=== PATIENT | female | born 1995 | race Asian ===

== ENCOUNTER 2017-12-16 18:56 | Outpatient (CLI) | payer OTHER ==
--- NOTE | 2017-12-17 08:38 | Ultrasound Report ---
Procedure Date: 12/16/2017 Accession Number: [id number] / [id number] Procedure: US - Pelvic Complete CPT Code: FULL RESULT: EXAM: PELVIC ULTRASOUND EXAM DATE: 12/16/2017 07:56 PM. CLINICAL HISTORY: Pelvic and perineal pain. COMPARISON: None. TECHNIQUE: Realtime transabdominal pelvic scan performed to identify the uterus and adnexa and as an overview of other pelvic structures, with static image documentation. FINDINGS: Study is limited by exclusively transabdominal technique. Uterus: 6.8 x 4.3 x 2.8 cm, volume 43 cc. Anteverted position. Normal overall size and echotexture. Masses: None. Endometrium: 7 mm. Normal. Cervix: Unremarkable. Right Ovary: 4.9 x 2.8 x 3.1 cm, volume 22 cc. Normal echotexture and blood flow by spectral Doppler. Left Ovary: 4.6 x 2.8 x 1.9 cm, volume 13 cc. Normal echotexture and blood flow by spectral Doppler. Free Fluid: None. Other: None. IMPRESSION: Normal pelvic ultrasound. RADIA
== END 2017-12-16 18:57 | disposition home or self-care (01) ==
LOC: DI 18:56
PROVIDERS: ATTEND Family Medicine
DX: R10.2 Pelvic and perineal pain (principal)
CPT/HCPCS: 76856

== ENCOUNTER 2017-12-22 23:26 | Emergency (ER) | payer OTHER ==
--- NOTE | 2017-12-22 23:53 | ED Physician Documentation ---
PD HPI ABD PAIN - Stated complaint Stated Complaint: ABDOMINAL PAIN - Chief complaint Chief Complaint: Abd Pain - History obtained from History obtained from: Patient, Family - History of Present Illness Timing - onset: Today Timing - details: Abrupt onset, Intermittant Quality: Cramping, Sharp Location: RUQ Worsened by: Eating, Breathing, Palpation Associated symptoms: Nausea. No: Fever, Vomiting Similar symptoms before: No diagnosis Recently seen: Not recently seen - Additional information Additional information: Patient is a 21 year old female who is presenting to the emergency department for abdominal pain. Patient had left upper quadrant pain 2 days ago and saw her doctor who said it was constipation. patient states that tonight she had right upper quadrant pain that was sharp in nature. Patient took some ibuprofen with little relief. Review of Systems Ten Systems: 10 systems reviewed and negative Constitutional: denies: Fever, Chills Cardiac: denies: Chest pain / pressure GI: reports: Abdominal Pain. denies: Nausea, Vomiting, Constipation, Diarrhea : denies: Dysuria, Frequency Musculoskeletal: denies: Back pain Neurologic: denies: Generalized weakness, Focal weakness, Numbness Immunocompromised: denies: Immunocompromised PD PAST MEDICAL HISTORY - Past Medical History Past Medical History: No - Past Surgical History HEENT: Myringotomy (tubes) - Present Medications Home Medications: Ambulatory Orders Medication Instructions Recorded Confirmed Ursodiol 300 mg PO TID #30 capsule 12/23/17 - Allergies Allergies/Adverse Reactions: Allergies Allergy/AdvReac Type Severity Reaction Status Date / Time No Known Drug Allergies Allergy Verified 12/22/17 23:38 - Social History Does the pt smoke?: No Smoking Status: Never smoker Does the pt drink ETOH?: No Does the pt have substance abuse?: No - Immunizations Immunizations are current?: Yes PD ED PE NORMAL - Vitals Vital signs reviewed: Yes - General General: Alert and oriented X 3, No acute distress - HEENT HEENT: Atraumatic, PERRL - Cardiac Cardiac: RRR - Respiratory Respiratory: No respiratory distress - Abdomen Abdomen: Soft - Derm Derm: Normal color, Warm and dry - Extremities Extremities: No deformity - Neuro Neuro: Alert and oriented X 3, No motor deficit, Normal speech Eye Opening: Spontaneous Motor: Obeys Commands Verbal: Oriented GCS Score: 15 - Psych Psych: Normal mood PD ED PE EXPANDED - Abdomen Abdomen: Tender to palpation, RUQ. No: Rebound, Guarding Results - Vitals Vitals: Vital Signs - 24 hr 12/22/17 12/23/17 23:32 00:50 Temperature 37 C Heart Rate 105 H 97 Respiratory 18 18 Rate Blood Pressure 155/93 H 131/99 H O2 Saturation 98 99 Oxygen O2 Source Room air - Labs Labs: Laboratory Tests 12/22/17 12/23/17 12/23/17 23:43 00:00 00:00 WBC 12.9 H RBC 4.31 Hgb 12.6 Hct 37.2 MCV 86.4 MCH 29.3 MCHC 33.9 RDW 12.6 Plt Count 435 MPV 7.1 L Neut # (Auto) 10.1 H Lymph # (Auto) 1.9 [place] # (Auto) 0.7 Eos # (Auto) 0.2 Baso # (Auto) 0.1 Absolute Nucleated RBC 0.00 Nucleated RBC % 0.0 Sodium 137 Potassium 3.9 Chloride 102 Carbon Dioxide 27 Anion Gap 8.0 BUN 15 Creatinine 0.8 Estimated GFR (MDRD) 92 Glucose 120 H Calcium 9.4 Total Bilirubin 0.5 AST 21 ALT 29 Alkaline Phosphatase 93 Total Protein 9.1 H Albumin 3.9 Globulin 5.2 H Albumin/Globulin Ratio 0.8 L Lipase 34 Urine Color YELLOW Urine Clarity CLEAR Urine pH 6.0 Ur Specific [place] 1.025 Urine Protein NEGATIVE Urine Glucose (UA) NEGATIVE Urine Ketones NEGATIVE Urine Occult Blood NEGATIVE Urine Nitrite NEGATIVE Urine Bilirubin NEGATIVE Urine Urobilinogen 0.2 (NORMAL) Ur Leukocyte Esterase NEGATIVE Ur Microscopic Review NOT INDICATED Urine Culture Comments NOT INDICATED Urine HCG, Qual NEGATIVE - Rads (name of study) abd ultrasound Radiology: Final report received (possible gallstone, no sign of infection), See rad report PD MEDICAL DECISION MAKING - ED course Complexity details: reviewed old records, reviewed results, re-evaluated patient , considered differential, d/w patient, d/w family ED course: Patient was seen and examined at bedside. labs were drawn and urine was collected. abd ultrasound was ordered. when patient returned from imaging results were reviewed. Patient was found to have a cholelithiasis without evidence of acute cholecystitis. Patient was educated on the disease. patient required no further work up and was stable for discharge with outpatient follow up. - Sepsis Event Vital Signs: Vital Signs - 24 hr 12/22/17 12/23/17 23:32 00:50 Temperature 37 C Heart Rate 105 H 97 Respiratory 18 18 Rate Blood Pressure 155/93 H 131/99 H O2 Saturation 98 99 Oxygen O2 Source Room air Departure - Departure Disposition: 01 Home, Self Care Clinical Impression: Gallstone Condition: Good Instructions: ED Gallstone W Biliary Colic Follow-Up: Victor Hugo Pratt MD [Provider Admit Priv/Credential] - Prescriptions: Ursodiol 300 mg PO TID #30 capsule Comments: Your symptoms today are being caused by a gallstone. You are being prescribed a medication to help dissolve it but the most important thing is to change your diet. You will need to cut out any fried foods, fatty foods or fast foods. you should follow up with dr. pabon for further evaluation and care. You should return to the emergency department for fevers, chills, vomiting, new worsening or uncontrollable symptoms.
[2017-12-23 00:11] LABS: BILIRUBIN,URINE NEGATIVE (NEGATIVE); GLUCOSE, URINE (UA) NEGATIVE (NEGATIVE); KETONES,URINE (UA) NEGATIVE (NEGATIVE); LEUKOCYTE ESTERASE, URINE NEGATIVE (NEGATIVE); NITRITE,URINE NEGATIVE (NEGATIVE); OCCULT BLOOD,URINE NEGATIVE (NEGATIVE); PROTEIN,URINE NEGATIVE (NEGATIVE); UROBILINOGEN,URINE 0.2 (NORMAL) E.U./dL (NORMAL)
[2017-12-23 00:17] LABS: CLARITY,URINE CLEAR (CLEAR); HCG UR QUAL NEGATIVE
[2017-12-23 00:19] LABS: BASOPHILS # (AUTO) 0.1 10^3/uL (0.0-0.1); BASOPHILS % (AUTO) 0.5 %; EOSINOPHILS # (AUTO) 0.2 10^3/uL (0.0-0.7); EOSINOPHILS % (AUTO) 1.2 %; HGB - HEMOGLOBIN 12.6 g/dL (12.0-16.0); LYMPHOCYTES # (AUTO) 1.9 10^3/uL (1.5-3.5); MEAN CORPUSCULAR HEMOGLOBIN 29.3 pg (27.0-31.0); MEAN CORPUSCULAR HGB CONC 33.9 g/dL (32.0-36.0); MEAN CORPUSCULAR VOLUME 86.4 fL (81.0-99.0); MEAN PLATELET VOLUME 7.1 fL (7.9-10.8); MONOCYTES # (AUTO) 0.7 10^3/uL (0.0-1.0); MONOCYTES % (AUTO) 5.1 %; NEUTROPHILS # (AUTO) 10.1 10^3/uL (1.5-6.6); NEUTROPHILS % (AUTO) 78.2 %; PLT - PLATELET COUNT 435 10^3/uL (130-450); RED BLOOD COUNT 4.31 10^6/uL (4.20-5.40); RED CELL DISTRIBUTION WIDTH 12.6 % (12.0-15.0); WHITE BLOOD COUNT 12.9 x10^3/uL (4.8-10.8)
[2017-12-23 00:20] LABS: ALBUMIN 3.9 g/dL (3.2-5.5); ALBUMIN/GLOBULIN RATIO 0.8 (1.0-2.2); BILIRUBIN,TOTAL 0.5 mg/dL (0.2-1.0); CALCIUM 9.4 mg/dL (8.5-10.3); CREATININE 0.8 mg/dL (0.4-1.0); TOTAL PROTEIN 9.1 g/dL (6.7-8.2)
[2017-12-23 00:51] VITALS: BP 131/99
--- NOTE | 2017-12-23 01:31 | Ultrasound Report ---
Procedure Date: 12/23/2017 Accession Number: [id number] / [id number] Procedure: US - Abdomen Limited CPT Code: FULL RESULT: EXAM: ABDOMEN ULTRASOUND LIMITED, RUQ EXAM DATE: 12/23/2017 12:35 AM. CLINICAL HISTORY: Ruq pain. COMPARISON: None. TECHNIQUE: Real-time scanning was performed with static images obtained. FINDINGS: Liver: Submitted images of liver demonstrate no focal lesions. Main portal vein flow: Hepatopetal. Gallbladder: The gallbladder is contracted. Questionable shadowing stone within the gallbladder fundus region. No evidence of gallbladder wall thickening. There is a positive sonographic Live sign. Biliary System: CBD measures 4 mm. No intrahepatic or extrahepatic ductal dilatation. Other: The visualized pancreas and right kidney are unremarkable. IMPRESSION: 1. Possible cholelithiasis. There is no evidence of gallbladder wall thickening for sonographic diagnosis of cholecystitis. 2. There is no intra-or extrahepatic bile duct dilatation. RADIA
== END 2017-12-23 01:27 | disposition home or self-care (01) ==
LOC: ED 23:26
DX: K80.20 Calculus of gallbladder without cholecystitis without obstruction (principal)
CPT/HCPCS: 36415; 76705; 80053; 81001; 81003; 81025; 83690; 85025; 87086; 99283

== ENCOUNTER 2020-07-17 03:07 | Emergency (ER) | payer OTHER ==
[2020-07-17 03:35] LABS: GLUCOSE, URINE (UA) NEGATIVE (NEGATIVE); KETONES,URINE (UA) NEGATIVE (NEGATIVE); LEUKOCYTE ESTERASE, URINE NEGATIVE (NEGATIVE); NITRITE,URINE NEGATIVE (NEGATIVE); OCCULT BLOOD,URINE SMALL (NEGATIVE); PROTEIN,URINE 100 mg/dL (NEGATIVE); UROBILINOGEN,URINE 1 (NORMAL) E.U./dL (NORMAL)
[2020-07-17 03:46] LABS: BACTERIA,URINE Few /HPF (None Seen); BILIRUBIN,URINE NEGATIVE (NEGATIVE); CLARITY,URINE CLEAR (CLEAR); HCG UR QUAL NEGATIVE; ICTOTEST,URINE NEGATIVE; SQUAMOUS EPITHELIAL CELL,UR FEW Squamous (<= Few); WBC,URINE 0-3 /HPF (0-5)
[2020-07-17 03:47] LABS: AMORPHOUS SEDIMENT,UR Rare /LPF; CASTS, URINE 3-5 Hyaline Casts /LPF; MUCUS,URINE Marked Strands
[2020-07-17 03:52] LABS: BASOPHILS # (AUTO) 0.1 10^3/uL (0.0-0.1); BASOPHILS % (AUTO) 0.6 %; EOSINOPHILS # (AUTO) 0.1 10^3/uL (0.0-0.7); HCT - HEMATOCRIT 46.1 % (37.0-47.0); HGB - HEMOGLOBIN 14.7 g/dL (12.0-16.0); LYMPHOCYTES # (AUTO) 2.8 10^3/uL (1.5-3.5); LYMPHOCYTES % (AUTO) 27.4 %; MEAN CORPUSCULAR HEMOGLOBIN 28.4 pg (27.0-31.0); MEAN CORPUSCULAR HGB CONC 31.9 g/dL (32.0-36.0); MEAN CORPUSCULAR VOLUME 89.2 fL (81.0-99.0); MEAN PLATELET VOLUME 9.1 fL (7.9-10.8); MONOCYTES # (AUTO) 0.6 10^3/uL (0.0-1.0); MONOCYTES % (AUTO) 5.8 %; NEUTROPHILS # (AUTO) 6.8 10^3/uL (1.5-6.6); NEUTROPHILS % (AUTO) 64.9 %; PLT - PLATELET COUNT 298 10^3/uL (130-450); RED BLOOD COUNT 5.17 10^6/uL (4.20-5.40); RED CELL DISTRIBUTION WIDTH 12.4 % (12.0-15.0); WHITE BLOOD COUNT 10.4 x10^3/uL (4.8-10.8)
[2020-07-17 04:06] LABS: BILIRUBIN,TOTAL 0.6 mg/dL (0.2-1.0); CALCIUM 9.3 mg/dL (8.5-10.3); POTASSIUM 3.6 mmol/L (3.5-5.0); TOTAL PROTEIN 8.1 g/dL (6.7-8.2)
--- NOTE | 2020-07-17 04:42 | ED Physician Documentation ---
History of Present Illness - Stated complaint Stated Complaint: STOMACH ACHE, NAUSEA - Chief complaint Chief Complaint: Abd Pain - History obtained from History obtained from: Patient - Additonal information Additional information: 24-year-old woman with history of gallstones, medically managed alone, no other medical history presents with near syncopal episode on the toilet around 2:30 AM. Patient states that she had 1 glass of wine last night and went to bed feeling normal, woke up with intermittent diffuse mild upper abdominal pain that is nonradiating, went to the toilet and as she was straining to have a BM she had a wave of nausea, lightheadedness and diaphoresis. She continued to feel weak and experienced ongoing intermittent abdominal pain and so her mother said that she should come to the emergency room. Patient is on oral contraceptive and had her period last week. Denies vomiting, diarrhea, urinary symptoms, fever, back pain. Pain has now resolved in the ED and she no longer feels dizzy. Review of Systems Ten Systems: 10 systems reviewed and negative Constitutional: denies: Fever, Chills, Myalgias Cardiac: denies: Chest pain / pressure Respiratory: denies: Dyspnea GI: reports: Abdominal Pain, Nausea. denies: Vomiting, Diarrhea : denies: Dysuria PD PAST MEDICAL HISTORY - Past Surgical History Past Surgical History: Yes HEENT: Myringotomy (tubes) - Present Medications Home Medications: Ambulatory Orders Medication Instructions Recorded Confirmed Drospir/Eth Estra/Levomefol Ca 1 each PO DAILY 07/17/20 07/17/20 [[id number]] - Allergies Allergies/Adverse Reactions: Allergies Allergy/AdvReac Type Severity Reaction Status Date / Time No Known Drug Allergies Allergy Verified 07/17/20 03:15 - Social History Does the pt smoke?: No Smoking Status: Never smoker Does the pt drink ETOH?: No Does the pt have substance abuse?: No - Immunizations Immunizations are current?: Yes PD ED PE NORMAL - Vitals Vital signs reviewed: Yes - General General: Alert and oriented X 3, No acute distress, Well developed/nourished - HEENT HEENT: Atraumatic, PERRL, EOMI, Moist mucous membranes - Neck Neck: Supple, no meningeal sign - Cardiac Cardiac: RRR - Respiratory Respiratory: No respiratory distress, Clear bilaterally - Abdomen Abdomen: Soft, Non tender, Non distended - Back Back: No CVA TTP - Derm Derm: Normal color, Warm and dry - Extremities Extremities: No deformity, No edema - Neuro Neuro: Alert and oriented X 3, forging engineer 2-12 intact, No motor deficit, No sensory deficit, Normal speech - Psych Psych: Normal mood, Normal affect Results - Vitals Vitals: Vital Signs - 24 hr 07/17/20 07/17/20 03:10 04:24 Temperature 36.2 C L Heart Rate 58 L Heart Rate [ 77 Sitting] Heart Rate [ 66 Standing] Heart Rate [ 67 Supine] Respiratory 18 Rate Blood Pressure 106/50 L Blood Pressure 108/79 [Sitting] Blood Pressure 108/78 [Standing] Blood Pressure 108/69 [Supine] O2 Saturation 99 Oxygen O2 Source Room air - Labs Labs: Laboratory Tests 07/17/20 07/17/20 07/17/20 03:21 03:21 03:45 WBC 10.4 RBC 5.17 Hgb 14.7 Hct 46.1 MCV 89.2 MCH 28.4 MCHC 31.9 L RDW 12.4 Plt Count 298 MPV 9.1 Neut # (Auto) 6.8 H Lymph # (Auto) 2.8 [place] # (Auto) 0.6 Eos # (Auto) 0.1 Baso # (Auto) 0.1 Absolute Nucleated RBC 0.00 Nucleated RBC % 0.0 Sodium Potassium Chloride Carbon Dioxide Anion Gap BUN Creatinine Estimated GFR (MDRD) Glucose Calcium Total Bilirubin AST ALT Alkaline Phosphatase Total Protein Albumin Globulin Albumin/Globulin Ratio Lipase Urine Color YELLOW Urine Clarity CLEAR Urine pH 6.0 Ur Specific [place] >=1.030 H Urine Protein 100 H Urine Glucose (UA) NEGATIVE Urine Ketones NEGATIVE Urine Occult Blood SMALL H Urine Nitrite NEGATIVE Urine Bilirubin NEGATIVE Urine Urobilinogen 1 (NORMAL) Ur Leukocyte Esterase NEGATIVE Urine RBC 6-10 H Urine WBC 0-3 Ur Squamous Epith Cells FEW Squamous Amorphous Sediment Rare Urine Bacteria Few Urine Casts 3-5 Hyaline Casts Urine Mucus Marked Strands Ur Microscopic Review INDICATED Urine Culture Comments NOT INDICATED Urine HCG, Qual NEGATIVE 07/17/20 03:45 WBC RBC Hgb Hct MCV MCH MCHC RDW Plt Count MPV Neut # (Auto) Lymph # (Auto) [place] # (Auto) Eos # (Auto) Baso # (Auto) Absolute Nucleated RBC Nucleated RBC % Sodium 140 Potassium 3.6 Chloride 101 Carbon Dioxide 23 Anion Gap 16.0 H BUN 11 Creatinine 1.0 Estimated GFR (MDRD) 69 L Glucose 108 H Calcium 9.3 Total Bilirubin 0.6 AST 18 ALT 16 Alkaline Phosphatase 38 L Total Protein 8.1 Albumin 4.0 Globulin 4.1 Albumin/Globulin Ratio 1.0 Lipase 25 Urine Color Urine Clarity Urine pH Ur Specific [place] Urine Protein Urine Glucose (UA) Urine Ketones Urine Occult Blood Urine Nitrite Urine Bilirubin Urine Urobilinogen Ur Leukocyte Esterase Urine RBC Urine WBC Ur Squamous Epith Cells Amorphous Sediment Urine Bacteria Urine Casts Urine Mucus Ur Microscopic Review Urine Culture Comments Urine HCG, Qual PD MEDICAL DECISION MAKING - ED course ED course: 24-year-old woman, previously healthy presents with likely vagal episode late this evening. EKG, lab work noncontributory. Note that orthostatic vitals were performed after 200cc ivf had already gone in . D/w patient and return p recautions were reinforced. she will call to f/u with her pcp this week. Departure - Departure Disposition: 01 Home, Self Care Clinical Impression: Vaso vagal episode, Abdominal pain, Nausea Condition: Good Instructions: ED Near Syncope Vasovagal Follow-Up: Mitul Matias, [Provider Admit Priv/Credential] - Comments: You were seen in the emergency department for nausea, abdominal pain, and ligh theadedness. Your EKG, lab work, and urine did not show any concerning findings, however it does look like you are mildly dehydrated. Make sure that you drink 10 glasses of water a day. Avoid alcohol if you continue to feel ill. Return to the emergency department for any new or worsening symptoms or other concerns. Follow-up with Dr. Matias this week.
[2020-07-17 05:09] VITALS: BP 111/68
== END 2020-07-17 05:20 | disposition home or self-care (01) ==
LOC: ED 03:07
DX: R55 Syncope and collapse (principal); R10.10 Upper abdominal pain, unspecified; R11.0 Nausea
CPT/HCPCS: 36415; 80053; 81001; 81003; 81025; 83690; 85025; 87086; 93005; 99282; 99283

== ENCOUNTER 2022-02-03 12:55 | Outpatient (CLI) | payer OTHER ==
--- NOTE | 2022-02-03 14:27 | CT Report ---
PROCEDURE: IVP INDICATIONS: HEMATURIA CONTRAST: IV CONTRAST: Optiray 320 ml: 140 PO CONTRAST: *NO PO CONTRAST TECHNIQUE: After the administration of oral and intravenous contrast, 5 mm thick sections acquired from the diap hragms to the symphysis. 5 mm thick coronal and sagittal reformats were acquired. For radiation dos e reduction, the following was used: automated exposure control, adjustment of mA and/or kV accordin g to patient size. COMPARISON: None. FINDINGS: Image quality: Excellent. Lung bases: Lung bases are clear. Heart size is normal. Urinary system: Both kidneys are normal in size and enhancement. Contrast-filled renal calyces are normal in morphology. Contrast filled portions of both ureters are normal in caliber. Bladder wall thickness is normal. Solid organs: Liver is enlarged measuring 20.6 cm with steatosis. The spleen is normal in size and e nhancement. Gallbladder is unremarkable Biliary system is non dilated. Pancreas enhances normally. No adrenal nodules. Peritoneum and bowel: Bowel loops demonstrate normal wall thickness and caliber. No free fluid or a ir. Nodes and vessels: No retroperitoneal or mesenteric adenopathy by size criteria. Aorta and inferior vena cava are normal in size. Abdominal wall: No ventral hernias. Pelvis: No pathologic free pelvic fluid. No inguinal hernias or adenopathy. Bones: No suspicious bony lesions. No vertebral body compression fractures. IMPRESSION: No renal, ureteral or bladder calculi, mass lesions or areas of abnormal enhancement. No visualized c ause of hematuria. Reviewed by: Heather Cobos MD on 02/03/2022 2:26 PM PDT Approved by: Heather Cobos MD on 02/03/2022 2:26 PM PDT Station ID: [id number]
== END 2022-02-03 12:56 | disposition home or self-care (01) ==
LOC: DI 12:55
PROVIDERS: ATTEND Student in an Organized Health Care Education/Training Program
DX: R31.9 Hematuria, unspecified (principal)
CPT/HCPCS: 74178; Q9967